=== PATIENT | male | born 1980 | race Caucasian/White ===

== ENCOUNTER 2020-07-21 18:04 | Emergency (ER) | payer OTHER ==
[~2020-07-21] VITALS: Ht 175.3 cm; Wt 92.0 kg
[2020-07-21 18:09] VITALS: BP 153/83
[2020-07-21] MEDS ORDERED: FLUORESCEIN OPHTH 1 MG STRIP OU ONE (18:30)
[2020-07-21] MEDS ORDERED: TETRACAINE 0.5% OPHTH SOLN 4ML OU ONE (18:30)
[2020-07-21] MEDS ORDERED: ERYTHROMYCIN OPHTH OINT OS ONE (18:55)
[2020-07-21] MEDS ORDERED: ERYT5OIN25 OS (18:57)
== END 2020-07-21 19:25 | disposition home or self-care (01) ==
LOC: M ED 18:04
DX: S05.02XA Injury of conjunctiva and corneal abrasion without foreign body, left eye, initial encounter (principal); X58.XXXA Exposure to other specified factors, initial encounter; Y92.019 Unspecified place in single-family (private) house as the place of occurrence of the external cause; Y93.9 Activity, unspecified; Y99.9 Unspecified external cause status